=== PATIENT | female | born 1985 | race African-American/Black ===

== ENCOUNTER 2017-07-16 21:00 | Inpatient (IN) | payer MEDICAID ==
[~2017-07-16] VITALS: Ht 147.3 cm; Wt 53.1 kg
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
--- NOTE | ~2017-07-16 | HP ---
Unit #: [id number] #: [id number] Patient: JESSIE ERNST [id number] [place] [address] [id number] MR#: [id number] NAME: JESSIE ERNST ROOM: P203 Age: 31 Sex: F Admission Date: 07/16/2017 : 1985 Attending Physician: Ozzy Cruz M.D. Admitting Physician: Ozzy Cruz M.D. Primary Care Physician: Primary Care Physician No HISTORY AND PHYSICAL HISTORY OF PRESENT ILLNESS Jessie is a 31 year old admitted to [address] [place] [address] because of her drug use. She shoots methamphetamine. PAST MEDICAL HISTORY 1. Long history of illicit substance abuse to include IV meth. 2. High blood pressure. 3. History of pyelonephritis. PAST SURGICAL HISTORY x5. ALLERGIES No known drug allergies. SOCIAL HISTORY Smokes 1/2 pack per day. Denies alcohol. Admits to a long history of illicit substance abuse to include IV methamphetamine. FAMILY HISTORY Medically noncontributory. REVIEW OF SYSTEMS CONSTITUTIONAL: No fever or chills. HEENT: Denies any sore throat, ear pain or runny nose. CARDIOVASCULAR: Denies chest pain, irregular heart rhythm or palpitations. CHEST: Denies shortness of breath or cough. No hemoptysis. GASTROINTESTINAL: Denies nausea, vomiting, diarrhea or chronic constipation. ENDOCRINE: Denies history of increased thirst or urination. No recent significant weight loss or gain. GENITOURINARY: Denies dysuria, frequency, or hematuria. SKIN: Denies any rashes. HEMATOLOGIC: Denies history of increased bleeding or bruising. MUSCULOSKELETAL: Denies any hot, swollen joints. No generalized muscle pain. NEUROLOGIC: Denies problems with vision or speech. No frequent, severe headaches. No numbness, tingling or weakness in any extremities. Denies loss of bladder or bowel control. CURRENT MEDICATIONS 1. Detox protocol. 2. Zyprexa 10 mg q.h.s. Unit #: [id number] #: [id number] Patient: JESSIE ERNST PHYSICAL EXAMINATION GENERAL: Alert, well-nourished, in no apparent distress. VITAL SIGNS: Blood pressure 146/92, heart rate 80, respirations 16, temperature 98.6. WEIGHT: 117. HEIGHT: 4 feet 10 inches. SKIN: Warm and dry without rash or lesion. HEENT: Normocephalic. TMs not viewed. Oral and nasal passages clear. Conjunctivae clear. PERRLA. EOMs intact. NECK: Supple without lymphadenopathy or thyromegaly. HEART: Regular rate and rhythm without murmur. LUNGS: Clear. ABDOMEN: Soft, nontender. : Not done. EXTREMITIES: No evidence of cyanosis, clubbing or edema. Moves all without focal deficit. NEUROLOGICAL: Grossly within normal limits. Cranial Nerves: II: Visual baird are intact. III, IV AND : Extraocular movements are intact. Pupils are equal, round and reactive to light. V: Facial sensation is grossly normal. VII: Facial movements and expression are normal. VIII: Auditory acuity grossly intact. IX, X: Uvula is midline. Phonation is normal. XI: Patient shrugs shoulders and turns head normally. XII: Tongue protrudes in the midline. Sensory and Motor Function: Sensory and motor sensation is grossly normal. Motor: moves all extremities well. Coordination: Gait is normal. Deep Tendon Reflexes: Intact. IMPRESSION 1. Psychiatric admission. 2. High blood pressure, not controlled on admission. She is admitted on no blood pressure medications. RECOMMENDATIONS PSYCHIATRIC: Per psychiatrist. MEDICAL: 1. See no contraindication to participate in facility's activities. 2. Identify home blood pressure medication and resume. If none can be identified, then would start lisinopril 10 mg 1 p.o. daily. MEDICAL PROGNOSIS Good. MEDICAL CONDITION Stable. Dictated by... Luly WangATiki-Valerie. for Mundo Michael/joao TD: 07/17/2017 18:32 JOB #: [id number] Unit #: [id number] #: [id number] Patient: JESSIE ERNST HISTORY AND PHYSICAL Page 1 of 1 X Nicky Nicholson HISTORY AND PHYSICAL
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
--- NOTE | ~2017-07-16 | DS ---
Unit #: [id number] #: [id number] Patient: JESSIE ERNST [id number] [facility] [address] [place] [address] [id number] I MR#: [id number] NAME: JESSIE ERNST ROOM: Formerly Named [facility] Age: 31 Sex: F Admission Date: 07/16/2017 : 1985 Discharge Date: 07/18/2017 Attending Physician: Ozzy Cruz M.D. Primary Care Physician: Primary Care Physician No DISCHARGE SUMMARY REASON FOR ADMISSION Chemical dependency and suicidal ideation. DIAGNOSTIC STUDIES LABORATORY RESULTS: Unremarkable. HOSPITAL COURSE The patient was admitted to the inpatient unit on 07/16/2017 and discharged on 07/18/2017. The patient was treated with group therapy, individual therapy, and medication management. The patient was responsive to treatment and showed improvement. Subsequently, the patient was discharged with a plan to follow up in outpatient program. DISCHARGE MEDICATIONS None. DISCHARGE DIAGNOSES Psychiatric: Mood disorder, not otherwise specified, F32.9; opioid use disorder, severe, F11.20; and amphetamine use disorder, moderate, F12.20. Secondary diagnosis: Deferred. Medical diagnosis: Hypertension. Stressors: Psychosocial stressors. DISCHARGE INSTRUCTIONS The patient to follow up in outpatient clinic as per social science instructor. CONDITION ON DISCHARGE The patient was pleasant and cooperative. Denied any psychotic symptom or any suicidal ideation. PROGNOSIS Guarded. DIET AND ACTIVITY As tolerated. Dictated by... Ozzy Cruz M.D. Unit #: [id number] #: [id number] Patient: JESSIE ERNST SZC/modl TD: 07/20/2017 12:58 JOB #: [id number] DISCHARGE SUMMARY Page 1 of 1 X Ozzy Cruz MD X DISCHARGE SUMMARY
[~2017-07-16 21:00] MED LIST: AZO STANDARD97.5 MG PO; BACTRIM DS TABL1 TA1 PO; BENADRYL25 MG PO; CIPRO PO; DICLOFENAC PO; FLEXERIL PO; FLEXERIL10 MG PO; LORTAB 5/500 TA1 TA1 PO; NO MEDICATIONS; PREDNISONE PO; PYRIDIUM100 MG; TYLENOL PM EX-S1 TA4; VOLTAREN75 MG PO; ZANTAC150 M1 PO
[2017-07-17 09:47] LABS: BASOPHIL# 0.1 X10e3 (0-0.3); EOSINOPHIL# 0.1 X10e3 (0-0.7); EOSINOPHIL% 1.6 % (0.0-7.0); HEMATOCRIT 34.6 % (35.0-45.0); HEMOGLOBIN 11.3 gm/dL (12.0-16.0); LYMPHOCYTE# 1.7 X10e3 (1.0-3.5); LYMPHOCYTE% 26.1 % (17.0-45.0); MEAN CORPUSCULAR HEMOGLOBIN 24.4 PG (28-34); MEAN CORPUSCULAR HGB CONC 32.6 g/dL (30-36); MEAN PLATELET VOLUME 8.8 FL (6.5-11.5); MONOCYTE# 0.4 X10e3 (0-1.0); NEUTROPHIL# 4.2 X10e3 (1.5-7.1); NEUTROPHIL% 65.3 % (40-75); PLATELET COUNT 406 X10e3 (140-420); RED BLOOD COUNT 4.61 X10e (3.90-5.30); WHITE BLOOD COUNT 6.5 X10e3 (4.0-10.5)
[2017-07-17 09:53] LABS: DIFF IND NO
[2017-07-17 09:54] LABS: ALBUMIN SERUM 3.2 g/dL (3.5-5.0); BILIRUBIN,TOTAL 0.5 mg/dL (0.2-2.0); CALCIUM SERUM 8.9 mg/dL (8.4-10.2); CREATININE SERUM 0.6 mg/dL (0.6-1.4); GLOM FILT RATE Estimated 140.8 mL/min (>60); POTASSIUM 3.8 mmol/L (3.5-5.1); PROTEIN TOTAL SERUM 6.3 g/dL (6.0-8.3)
== END 2017-07-18 12:05 | disposition home or self-care (01) | DRG 885 ==
LOC: P2S 22:48
PROVIDERS: Psychiatry & Neurology Psychiatry
PROC: HZ2ZZZZ Detoxification Services for Substance Abuse Treatment (ICD-10-PCS; principal; 2017-07-16)
DX: F39 Unspecified mood [affective] disorder (principal); F11.20 Opioid dependence, uncomplicated; I10 Essential (primary) hypertension; F15.20 Other stimulant dependence, uncomplicated; F17.210 Nicotine dependence, cigarettes, uncomplicated; F15.10 Other stimulant abuse, uncomplicated
CPT/HCPCS: 80053; 84703; 85025; 86592